=== PATIENT | female | born 1945 | race Caucasian/White ===

== ENCOUNTER 2020-05-17 22:11 | Observation (INO) | payer MEDICARE ==
[~2020-05-17] VITALS: Ht 172.7 cm; Wt 104.3 kg
[2020-05-17] MEDS ORDERED: TEMA30 PO (23:09)
[2020-05-17] MEDS ORDERED: Temazepam30 MG PO (23:09)
[2020-05-17] MEDS ORDERED: OMEPRAZOLE20 M1 PO (23:10)
[2020-05-17] MEDS ORDERED: TOPROL XL50 MG PO (23:10)
[2020-05-17] MEDS ORDERED: ATORVASTATIN CA20 MG PO (23:10)
[2020-05-17] MEDS ORDERED: ALPR.5 PO (23:11)
[2020-05-17] MEDS ORDERED: ASCO500 PO (23:12)
[2020-05-17] MEDS ORDERED: IRON18 MG PO (23:16)
[2020-05-17] MEDS ORDERED: COQ-10100 MG PO (23:16)
[2020-05-17] MEDS ORDERED: LIBRAX CAPSULE1 EACH PO (23:16)
[2020-05-17] MEDS ORDERED: TUMS500 MG PO (23:17)
[2020-05-17 23:45] LABS: BASOPHILS ABSOLUTE AUTO 0.05 K/mm3 (0.00-0.23); BASOPHILS PERCENT AUTO 1 % (0-2); EOSINOPHILS ABSOLUTE AUTO 0.05 K/mm3 (0.00-0.68); EOSINOPHILS PERCENT AUTO 1 % (0-6); Hematocrit 38.8 % (33.0-51.0); Hemoglobin 12.6 g/dL (11.5-16.0); IMMATURE GRAN ABSOLUTE AUTO 0.03 K/mm3 (0.00-0.10); IMMATURE GRAN PERCENT AUTO 0 % (0-1); LYMPHOCYTES ABSOLUTE AUTO 1.92 K/mm3 (0.84-5.20); LYMPHOCYTES PERCENT AUTO 24 % (21-46); MONOCYTES ABSOLUTE AUTO 0.61 K/mm3 (0.16-1.47); MONOCYTES PERCENT AUTO 8 % (4-13); Mean Corpuscular HGB 31.3 pg (26.0-34.0); Mean Corpuscular HGB Conc 32.5 g/dL (31.5-36.5); Mean Corpuscular Volume 97 fL (80-100); Mean Platelet Volume 10.1 fL (9.1-12.4); NEUTROPHILS ABSOLUTE AUTO 5.33 K/mm3 (1.96-9.15); NEUTROPHILS PERCENT AUTO 67 % (41-73); Platelet Count 195 K/mm3 (150-400); RDW Coefficient Variation 13.6 % (11.7-14.2); RDW Standard Deviation 48.8 fL (35.1-46.3); Red Blood Cell Count 4.02 M/mm3 (3.80-5.20); White Blood Cell Count 7.99 K/mm3 (4.00-11.30)
[2020-05-18 00:01] LABS: Alanine Aminotransfer (ALT/SGP 28 U/L (12-78); Albumin, Blood 3.7 g/dL (3.4-5.0); Albumin/Globulin Ratio 1.1 (0.8-1.8); Alk Phos 70 U/L (50-136); Anion Gap 6 mmol/L (6-16); Aspartate Aminotrans (AST/SGOT 22 U/L (12-37); Bilirubin, Total 0.4 mg/dL (0.1-1.0); Blood Urea Nitrogen 10 mg/dL (8-24); Bun/Creatinine Ratio 14.5 (12.0-20.0); CO2, Blood 27 mmol/L (21-32); Calcium, Blood 8.7 mg/dL (8.5-10.1); Chloride, Blood 104 mmol/L (98-108); Creatinine, Blood 0.69 mg/dL (0.40-1.00); Globulin, Blood 3.5 g/dL (2.2-4.0); Glomerular Filtration Rate >60 (60-); Glucose, Blood 124 mg/dL (70-99); Potassium, Blood 4.1 mmol/L (3.5-5.5); Sodium, Blood 137 mmol/L (136-145); Total Protein, Blood 7.2 g/dL (6.4-8.2)
[2020-05-18 04:15] LABS: Source, Urine Clean Catch
[2020-05-18 04:17] LABS: Appearance, Urine Clear (Clear); Bilirubin, Urine Neg (Neg); Blood, Urine Neg (Neg); Color, Urine Yellow (P-Yellow); Glucose Qualitative, Urine Neg (Neg); Ketones, Urine Neg (Neg); Leukocyte Esterase, Urine Neg (Neg); Nitrite, Urine Neg (Neg); Protein, Urine Neg (Neg); Urobilinogen, Urine NORM (Normal)
--- NOTE | 2020-05-18 06:50 | NUR ---
PT NEW ADMIT FROM ER AT 0505 THIS AM FOR TRAUMATIC PNEUMOTHORAX, ARRIVED TO ROOM VIA BED FROM ER. STATES THAT HER PAIN WAS IMPROVED BEFORE SHE HAD TO MOVE TO SPEAK AND NOW RATES PAIN AT 10/10, ASSISTED TO POSITION FOR COMFORT AND PLAN TO ALLOW UNINTERUPTED REST FOR PAIN CONTROL, MORPHINE ADMIN BY ACCOUNTING MACHINE MECHANIC JUST PRIOR TO ARRIVAL TO ROOM. PT IS SPEAKING IN FULL SENTENCES, LUNGS ARE CLEAR, SATS MAINTAINING WITH OXYGEN VIA NASAL CANNULA AT 2 L/MIN. HRR, PRESSURE MAINTAINING, EDEMA IS NOTED TO BLE, PT STATES BASELINE. CALL LIGHT PROVIDED, USE EXPLAINED AND ENCOURAGED.
--- NOTE | 2020-05-18 08:09 | NUR ---
PT RECENTLY TO IMAGING BY W/C PER PT REQ. PT REPORTED THINKING SHE WOULD DO BETTER TO GET UP TO W/C INSTEAD OF SLIDING TO BED. PT TOLERATED WELL WITH MULT ASSIST. PT REPORTS UNSURE OF HOW WELL PAIN MEDICATION WORKED, WOULD NOT RATE BUT APPEARED TO BE MOVING BETTER AND FACE SCALE WAS BETTER.
--- NOTE | 2020-05-18 08:39 | NUR ---
PT RECENTLY BACK FROM IMAGING. PT ASSISTED TO BATHROOM. PT VOIDED, CLEANED UP BY SELF. PT APPEARS MORE COMFORTABLE UP IN CHAIR WITH MULT PILLOWS FOR COMFORT. PT REPORTS SCAB ON LLE HEALING SORE THAT IS GETTING BETTER, NO OPEN SORES TO HEELS. PT REPORTS NO SORES ON BOTTOM, NO REDNESS UNDER BREAST OR JOSEPHINE AREA, RN ASSESSED BOTTOM THAT COULD SEE WHILE PT GETTING UP FROM BATHROOM, PT "IF YOU HAVE TO", EDUCATED PT DID NOT HAVE TO IF PT REF/REQ RN NOT TO. PT REPORTED OK TO LOOK AT BOTTOM WHEN GETTING UP, RN DID NOT ASSESS UNDER BREAST OR JOSEPHINE AREA. PT VOIDED. PT SBA WITH CANE. PT REPORTS NAUSEA WHEN TRYING TO DRINK, EVEN WATER.
--- NOTE | 2020-05-18 08:48 | NUR ---
DR ANDRADE SEEN IN [facility], DISCUSSED PT'S NAUSEA, SEE ORDERS.
--- NOTE | 2020-05-18 08:59 | NUR ---
DR ANDRADE HERE TO SEE PT, DISCUSSED PT'S STATUS INCLUDING LS.
--- NOTE | 2020-05-18 10:19 | NUR ---
DR ANDRADE TO ROOM, DISCUSSED PT CONT TO HAVE NAUSEA.
--- NOTE | 2020-05-18 12:32 | NUR ---
PT UP AND AMBULATED IN HALLWAY WITH WALKER, FAMILY WITH STEADY GAIT.
--- NOTE | 2020-05-18 18:06 | NUR ---
PT ATE MOST OF [facility] DINNER INCLUDING ENSURE WITHOUT DIFFICULTY. DR NOTIFIED PT REQ TO HAVE SOMETHING ELSE LATER THIS EVENING THAN C.[facility].. PT DRINKING WELL AT THIS TIME. PT AMBULATED IN HALLWAY WITH WALKER WITH STEADY GAIT.
--- NOTE | 2020-05-18 18:13 | NUR ---
SHIFT SUMMARY PT BEEN ASSISTED WITH ADL'S PRN. PT BEEN MED PRN FOR PAIN AND NAUSEA. PT THIS AFTERNOON NAUSEA AND PAIN BEEN BETTER. PT BEEN UP AMBULATING IN HALLWAY MULT TIMES. PT REPORTS DOES NOT WANT TO WEAR PAS, THAT SHE WILL GET UP AND WALK. FAMILY BEEN IN ROOM. PT CONT TO BE A/O. PT USING I/S. PT BEEN SITTING UP IN CHAIR THAT IS MORE COMFORTABLE FOR HER.
--- NOTE | 2020-05-19 04:04 | NUR ---
SHIFT SUMMARY PT A/O X4 AND IND. IN ROOM. PT HAS AMBULATED IN HALLWAY AND TO BATHROOM MULT TIMES. AT START OF SHIFT PT'S IV STARTED LEAKING. PO PAIN MEDS WERE GIVEN BUT PT REPORTS THIS DID NOT HELP. IV PLACED; IV FENTANYL GIVEN PER ORDERS. PT REPORTS THIS HELPED WITH PAIN. PT DID HAVE ONE EPISODE OF NAUSEA WHICH SHE REPORTS WAS BROUGHT ON BY PAIN. MED WITH ZOFRAN. AT THIS TIME (0) PT IS RESTING IN CHAIR WITH EYES CLOSED. CALL LIGHT IN REACH.
[2020-05-19] MEDS ORDERED: Norco 5-325 Ta1 EACH PO (11:00)
--- NOTE | 2020-05-19 13:17 | NUR ---
EMESIS: PT STATED SHE DID NOT HAVE AN APPETITE AT LUNCH, ATE MINIMAL. PT THEN HAD 2 EPISODES OF EMESIS, 300 TOTAL OUT. MEDICATED PER EMAR. MD NOTIFIED. WILL CALL IN NAUSEA MEDICATION PRESCRIBED AND CONTINUE TO MONITOR.
--- NOTE | 2020-05-19 14:09 | NUR ---
patient reports feeling better and would like to go home, She reports feeling it may be the medication she took on an empty stomach that made her vomit earlier. Denies pain at this time. Discharge instructions reviewed with patient and . Assisted to car via WC by ANDREW
== END 2020-05-19 14:12 | disposition home or self-care (01) ==
LOC: ER 22:11 → SURS 22:12 → ERHOLD 22:12 → SURS 22:13 → ERHOLD 05-18 01:52 → ER 05-18 01:52 → SURS 05-18 01:52 → ERHOLD 05-18 05:01 → SURS 05-18 05:01
PROVIDERS: Emergency Medicine; ADMIT Surgery
DX: S22.41XA Multiple fractures of ribs, right side, initial encounter for closed fracture (principal); S27.0XXA Traumatic pneumothorax, initial encounter; F41.9 Anxiety disorder, unspecified; W19.XXXA Unspecified fall, initial encounter; Y92.009 Unspecified place in unspecified non-institutional (private) residence as the place of occurrence of the external cause; Z79.899 Other long term (current) drug therapy; M15.0 Primary generalized (osteo)arthritis; M50.322 Other cervical disc degeneration at C5-C6 level; M48.02 Spinal stenosis, cervical region
CPT/HCPCS: 36415; 70450; 71046; 71260; 72125; 74177; 80053; 81003; 83605; 85025; 96374-59; 96375; 96375-59; 96376; 99285-25; A9270-GY; G0378; J2270; J2405; J2550; J3010; J7120; Q9967

== ENCOUNTER 2020-06-25 12:12 | Emergency (ER) | payer MEDICARE ==
[~2020-06-25] VITALS: Ht 172.7 cm; Wt 108.9 kg
[~2020-06-25 12:12] MED LIST: ALPR.5 PO; ASCO500 PO; ATORVASTATIN CA20 MG PO; COQ-10100 MG PO; IRON18 MG PO; LIBRAX CAPSULE1 EACH PO; Norco 5-325 Ta1 EACH PO; OMEPRAZOLE20 M1 PO; TEMA30 PO; TOPROL XL50 MG PO; TUMS500 MG PO; Temazepam30 MG PO
[2020-06-25 13:37] LABS: BASOPHILS ABSOLUTE AUTO 0.05 K/mm3 (0.00-0.23); BASOPHILS PERCENT AUTO 1 % (0-2); EOSINOPHILS ABSOLUTE AUTO 0.06 K/mm3 (0.00-0.68); EOSINOPHILS PERCENT AUTO 1 % (0-6); Hemoglobin 10.5 g/dL (11.5-16.0); IMMATURE GRAN ABSOLUTE AUTO 0.01 K/mm3 (0.00-0.10); IMMATURE GRAN PERCENT AUTO 0 % (0-1); LYMPHOCYTES ABSOLUTE AUTO 1.35 K/mm3 (0.84-5.20); LYMPHOCYTES PERCENT AUTO 24 % (21-46); MONOCYTES ABSOLUTE AUTO 0.74 K/mm3 (0.16-1.47); MONOCYTES PERCENT AUTO 13 % (4-13); Mean Corpuscular HGB 29.7 pg (26.0-34.0); Mean Corpuscular HGB Conc 31.8 g/dL (31.5-36.5); Mean Corpuscular Volume 93 fL (80-100); NEUTROPHILS ABSOLUTE AUTO 3.45 K/mm3 (1.96-9.15); NEUTROPHILS PERCENT AUTO 61 % (41-73); Platelet Count 357 K/mm3 (150-400); RDW Coefficient Variation 13.9 % (11.7-14.2); RDW Standard Deviation 47.6 fL (35.1-46.3); Red Blood Cell Count 3.54 M/mm3 (3.80-5.20); White Blood Cell Count 5.66 K/mm3 (4.00-11.30)
[2020-06-25 14:14] LABS: Alanine Aminotransfer (ALT/SGP 107 U/L (12-78); Albumin, Blood 2.6 g/dL (3.4-5.0); Albumin/Globulin Ratio 0.6 (0.8-1.8); Alk Phos 166 U/L (50-136); Anion Gap 6 mmol/L (6-16); Aspartate Aminotrans (AST/SGOT 61 U/L (12-37); Bilirubin, Total 0.4 mg/dL (0.1-1.0); Blood Urea Nitrogen 10 mg/dL (8-24); Bun/Creatinine Ratio 16.2 (12.0-20.0); CO2, Blood 27 mmol/L (21-32); Calcium, Blood 8.8 mg/dL (8.5-10.1); Chloride, Blood 104 mmol/L (98-108); Creatinine, Blood 0.62 mg/dL (0.40-1.00); Globulin, Blood 4.5 g/dL (2.2-4.0); Glomerular Filtration Rate >60 (60-); Glucose, Blood 100 mg/dL (70-99); Potassium, Blood 3.7 mmol/L (3.5-5.5); Sodium, Blood 137 mmol/L (136-145); Total Protein, Blood 7.1 g/dL (6.4-8.2); Troponin I <0.015 ng/mL (0.000-0.040)
== END 2020-06-25 18:38 | disposition short-term general hospital (02) ==
LOC: ER 12:12
PROVIDERS: Emergency Medicine
DX: R09.02 Hypoxemia (principal); S22.41XD Multiple fractures of ribs, right side, subsequent encounter for fracture with routine healing; S27.1XXD Traumatic hemothorax, subsequent encounter; Z20.828 Contact with and (suspected) exposure to other viral communicable diseases; Z79.899 Other long term (current) drug therapy
CPT/HCPCS: 36415; 71046; 80053; 83880; 84484; 85025; 93005; 93010; 99285-25; U0002